=== PATIENT | male | born 1985 | race Caucasian/White ===

== ENCOUNTER 2016-10-05 16:40 | Inpatient (IN) | payer OTHER, SELFPAY ==
[~2016-10-05] VITALS: Ht 170.2 cm; Wt 137.9 kg
[2016-10-05] MEDS ORDERED: NALOXONE INJ 0.4 MG/1 ML VIAL (J2310) IV STA (16:50)
[2016-10-05] MEDS ORDERED: NALOXONE INJ 0.4 MG/1 ML VIAL (J2310) As Ordered ONE (16:50)
[2016-10-05] MEDS ORDERED: NALOXONE INJ 2 MG/2 ML SYRINGE (J2310) IV STA (16:53)
[2016-10-05] MEDS ORDERED: NALOXONE INJ 2 MG/2 ML SYRINGE (J2310) As Ordered ONE (16:54)
[2016-10-05 17:11] LABS: ABG BASE EXCESS -3.6 (-2.0-2.0); ABG HCO3 21.6 MEQ/L (22.0-26.0); ABG PARTIAL PRESSURE CO2 39.8 mmHg (35.0-45.0); ABG PARTIAL PRESSURE O2 79.1 mmHg (75.0-100.0); ABG STANDARD HCO3 21.5 MEQ/L (22.0-26.0); ABG TOTAL CO2 22.9 MEQ/L (22.0-29.0); ABG pH (ARTERIAL) 7.353 UNITS (7.350-7.450)
[2016-10-05] MEDS ORDERED: FUROSEMIDE 100 MG/10 ML VIAL (J1940) IV ONE (17:15)
[2016-10-05] MEDS ORDERED: PIPERACILLIN/TAZOBACTAM SOD 3.375 GM in D5W MINI-BAG PLUS 50 ML IV ONE (17:30)
[2016-10-05 17:34] LABS: MEAN CORPUSCULAR HEMOGLOBIN 28.9 pg (27.0-33.0); MEAN CORPUSCULAR HGB CONC 34.7 g/dl (32.0-36.5); MEAN CORPUSCULAR VOLUME 83.3 fl (80.0-96.0); RED CELL DISTRIBUTION WIDTH 13.1 % (11.5-14.5)
[2016-10-05 18:00] LABS: ALBUMIN 3.6 GM/DL (3.2-5.2); ALBUMIN/GLOBULIN RATIO 0.88 (1.00-1.93); ALKALINE PHOSPHATASE 72 U/L (45-117); ALT/SGPT 47 U/L (12-78); ANION GAP 11 MEQ/L (8-16); AST/SGOT 28 U/L (15-37); BILIRUBIN,DIRECT < 0.1 MG/DL (0.0-0.2); BILIRUBIN,TOTAL 0.3 MG/DL (0.2-1.0); BLOOD UREA NITROGEN 14 MG/DL (7-18); CALCIUM LEVEL 8.4 MG/DL (8.5-10.1); CARBON DIOXIDE LEVEL 23 MEQ/L (21-32); CHLORIDE LEVEL 104 MEQ/L (98-107); CREATININE FOR GFR 1.45 MG/DL (0.70-1.30); GLOMERULAR FILTRATION RATE 59.7 (>60); GLUCOSE, FASTING 234 MG/DL (70-105); SODIUM LEVEL 138 MEQ/L (136-145); TOTAL PROTEIN 7.7 GM/DL (6.4-8.2)
[2016-10-05] MEDS ORDERED: NITROGLYCERIN 0.3 MG SUBL TAB SL STA (18:00)
[2016-10-05] MEDS ORDERED: ALBUTEROL SULFATE 2.5 MG/0.5 ML INH NEB SOLN NEB ONE (18:00)
[2016-10-05 18:15] VITALS: BP 210/90
[2016-10-05] MEDS ORDERED: methylPREDNISolone INJ 40 MG/1 ML VIAL (J2920) IV ONE (19:15)
[2016-10-05 19:26] LABS: METHADONE URINE NEGATIVE (NEGATIVE)
[2016-10-05] MEDS ORDERED: ISOVUE-370 76% 100ML VIAL (Q9967) As Ordered ONE (20:10)
[2016-10-05] MEDS ORDERED: NS 500 ML IV ONE (20:15)
[2016-10-05] MEDS: CHLORHEXIDINE GLUCONATE 0.12 % 15ML UDC (PERIDEX ORAL RINSE) MT SCH (21:00)
[2016-10-05] MEDS ORDERED: ALBUTEROL SULFATE 2.5 MG/0.5 ML INH NEB SOLN NEB PRN (21:00)
--- NOTE | 2016-10-05 21:00 | REPUSA ---
CLINICAL HISTORY: Dyspnea. TECHNIQUE: Multiple incremental axial, coronal and oblique images are obtained from the thoracic inle t to the upper abdomen. Intravenous contrast material was administered as per pulmonary embolism prot ocol. This is a motion degraded study. COMMENTS: There is excellent opacification of pulmonary arterial system without evidence for pulmonary embolism . Aorta is of normal caliber without evidence for dissection or aneurysm. Note is made of patchy opacity scattered throughout both lung kenyon. There is dense consolidation n oted at both lung bases as well as lingula and left upper lobe. This is compatible with diffuse mult ifocal pneumonia-disseminated section. Clinical correlation is recommended. There is no evidence of pleural or parenchymal mass. There are no pleural effusions. There is no ev idence of hilar or mediastinal lymphadenopathy. The heart and great vessels are within normal limits . Images of the upper abdomen demonstrate no evidence of adrenal mass. The bony structures are free of lytic or blastic lesions. Bilateral gynecomastia is seen. There is hepatic hypoattenuation compatible with patchy infiltration. IMPRESSION: 1. No evidence for pulmonary embolism. 2. Patchy opacity scattered throughout both lung kenyon. There is dense consolidation noted at both lung bases as well as lingula and left upper lobe. This is compatible with diffuse multifocal pneumo rissa-disseminated section. Clinical correlation is recommended. 3. Fatty liver. 4. Bilateral gynecomastia is seen. Thank you for your kind referral of this patient. We appreciate the opportunity to participate in thi s patient's care.
[2016-10-05] MEDS ORDERED: VANCOMYCIN HCL 1,000 MG, VIAL MATE ADAPTER 1 EACH in D5W 250 ML IV ONE (21:30)
[2016-10-05 21:41] LABS: ABG BASE EXCESS -6.7 (-2.0-2.0); ABG HCO3 19.3 MEQ/L (22.0-26.0); ABG PARTIAL PRESSURE CO2 40.6 mmHg (35.0-45.0); ABG PARTIAL PRESSURE O2 206.4 mmHg (75.0-100.0); ABG STANDARD HCO3 19.2 MEQ/L (22.0-26.0); ABG TOTAL CO2 20.6 MEQ/L (22.0-29.0); ABG pH (ARTERIAL) 7.296 UNITS (7.350-7.450)
[2016-10-05] MEDS ORDERED: LORazepam 2 MG TAB PO PRN (21:45)
[2016-10-06] VITALS (9 sets, daily range): BP systolic 138–168; BP diastolic 66–85
[2016-10-06] MEDS: THIAMINE 100 MG TAB PO SCH ×3 (00:44→20:45)
[2016-10-06] MEDS: HEPARIN SOD (PORCINE) 5000 UNITS/ML VIAL SC SCH ×4 (00:45→21:52)
[2016-10-06] MEDS ORDERED: VANCOMYCIN HCL 1,000 MG, VIAL MATE ADAPTER 1 EACH in D5W 250 ML IV ONE (01:00)
--- NOTE | 2016-10-06 01:06 | PHACANCOPD ---
PHARMACY VANCOMYCIN DOSING Pt Demographics Demographics Patient Age:31 , Weight: , Gender: male Adjusted Body Weight Date: 10/06/16, Adjusted Body Weight: Kg Events Past 24 Hours Events Past 24 Hours: NO: Dialysis, Diuretic Therapy, Change in CrCl, Fever, Elevation in WBC, Pending Diagnostics, Pending Procedures, Other Vancomycin Vancomycin Target Ranges: 15-20 mcg/ml Vancomycin Load Y/N: Yes Load Dose Date Time Vancomycin Load Dose: 2000MG Date: 10-06 Time: 0100 Vancomycin Dose Date: 10/06/16. Current Vancomycin Dose: [1000MG Q8H] Intermittent Dosing?: No Labs Labs Item Value Date Time White Blood Count 18.0 K/mm3 H 10/05/16 1705 Creatinine 1.45 MG/DL H 10/05/16 1705 Vital Signs Label Value Date Time Patient Temperature 97.7 degrees F 10/06/16 0048 Micro Microbiology 10/05/16 Blood Culture, Received Pending 10/05/16 Blood Culture, Received Pending Creatinine Clearance Date:10/06/16. Creatinine Clearance: [67]. Pending Labs trough 06-12 @0000 Assessment and Plan Maintaining Current Dose?: Yes Reason for dose change: No Dose Change Pharmacist Note Pharmacist Note Date: 10/06/16. Pharmacist note:Dosed at 1000mg q8h with a trough ordered for 06- 12 @0000. Will continue to monitor and make adjustments as needed. [facility] Oct 06, 2016 01:06
[2016-10-06] MEDS: PIPERACILLIN/TAZOBACTAM SOD 3.375 GM in D5W MINI-BAG PLUS 50 ML IV SCH ×4 (01:53→20:45)
[2016-10-06 05:15] LABS: MEAN CORPUSCULAR HEMOGLOBIN 28.7 pg (27.0-33.0); MEAN CORPUSCULAR VOLUME 84.5 fl (80.0-96.0); RED CELL DISTRIBUTION WIDTH 13.3 % (11.5-14.5); WHITE BLOOD COUNT 20.6 K/mm3 (4.0-10.0)
[2016-10-06] MEDS: NS 1,000 ML IV SCH (05:15)
[2016-10-06 05:26] LABS: ALBUMIN 3.3 GM/DL (3.2-5.2); ALBUMIN/GLOBULIN RATIO 0.77 (1.00-1.93); ALKALINE PHOSPHATASE 51 U/L (45-117); ALT/SGPT 51 U/L (12-78); ANION GAP 11 MEQ/L (8-16); AST/SGOT 35 U/L (15-37); BILIRUBIN,TOTAL 0.7 MG/DL (0.2-1.0); BLOOD UREA NITROGEN 12 MG/DL (7-18); CALCIUM LEVEL 8.5 MG/DL (8.5-10.1); CARBON DIOXIDE LEVEL 23 MEQ/L (21-32); CHLORIDE LEVEL 105 MEQ/L (98-107); CREATININE FOR GFR 1.43 MG/DL (0.70-1.30); GLOMERULAR FILTRATION RATE > 60.0 (>60); GLUCOSE, FASTING 234 MG/DL (70-105); POTASSIUM SERUM 4.5 MEQ/L (3.5-5.1); SODIUM LEVEL 139 MEQ/L (136-145); TOTAL PROTEIN 7.6 GM/DL (6.4-8.2)
--- NOTE | 2016-10-06 05:47 | HPEPDOC ---
General Date of Admission Oct 05, 2016 at 21:00 Other Providers NO pcp Attending Physician: CHELSEA CORTEZ DO Chief Complaint The patient is a 31-year-old male admitted with a reason for visit of Drug Abuse , Shortness Of Breath. Source: Patient Exam Limitations: Other (BIPAP) Timing/Duration: 4-6 hours Severity: Severe Associated Symptoms: Unobtainable History of Present Illness 31-year-old man, history of drug abuse, presented to the emergency room with altered mental status. Patient's has history of cocaine abuse in the past, but according to his father. He has been taking for last 5 years. 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 He came to visit his father in [place]. Father and son. Diving 2. Cannot do from [place]. There are diving for a 5 hours and father suddenly found that there is some in the back seat and was getting very short of breath and eventually soon became unresponsive. Now father. The rest of the car on the side and they started doing chest compress and while his friend called 911. He continued just compress in for a couple of minutes not certain about the pulse status. After few minutes visit. This started eating responsive, had vomiting and apparently had some aspiration. When EMS arrived. This indigestion, unresponsive. Patient was given Narcan and brought to the ER. After giving another dose of Narcan per Center. This started getting more responsive. He was put on nonrebreather and was saturating well on nonrebreather. Later was replaced with the BiPAP. According to the father just before the journey patient confessed to use heroine and fentanyl Home Medications No Active Prescriptions or Reported Meds Allergies Coded Allergies: No Known Allergies (Unverified , 10/05/16) Past Medical History Medical History Drug abuse Surgical History Wrist repair Family History Significant Family History: Diverticulitis, Heart disease, Hypertension Social History * Smoker: Denies Alcohol: Denies Drugs: heroin Recent Travel/Sick Contacts: Reports: Recent travel, Denies: Recent sick contacts Psychosocial History: No pertinent psych hx Review of Symptoms Other systems Unable to open due to BiPAP Physical Examination General Exam: Positive: Alert, Severe Distress Eye Exam: Positive: PERRLA, Conjunctiva & lids normal, Negative: Sclera icteric ENT Exam: Positive: Atraumatic, Mucous membr. moist/pink Neck Exam: Positive: Supple, Negative: JVD, thyromegaly Chest Exam: Positive: Rhonchi, Other (crackles) Heart Exam: Positive: Tachycardic, Regular Rhythm, Normal S1, Normal S2, Negative: Murmurs, Rubs Telemetry: Positive: No significant arrhythmia Abdomen Exam: Positive: Normal bowel sounds, Soft, Negative: Tenderness, Hepatospenomegaly Extremity Exam: Positive: Normal pulses, Negative: Clubbing, Cyanosis, Edema Skin Exam: Positive: Nl turgor and temperature, Negative: Breakdown, Lesion Neuro Exam: Positive: Cranial Nerves 3-12 NL, Reflexes 2+ Psych Exam: Positive: Mood NL Vital Signs Vital Signs Date Time Temp Pulse Resp B/P (MAP) Pulse Ox O2 Delivery O2 Flow Rate FiO2 10/06/16 00:55 Venturi Mask 15.0 50 10/06/16 00:48 97.7 10/06/16 00:44 100 24 95 Laboratory Data Labs 24H Laboratory Tests 2 10/05/16 17:05: Blood Gas Bicarbonate Standard 21.5L, Arterial Blood pH 7.353, Arterial Blood Partial Pressure CO2 39.8, Arterial Blood Partial Pressure O2 79.1, Arterial Blood Total CO2 22.9, Arterial Blood HCO3 21.6L, Arterial Blood Base Excess - 3.6L, Arterial Blood Oxygen Saturation 95.8, Anion Gap 11, Glomerular Filtration Rate 59.7L, Osmolality 302H, Calcium Level 8.4L, Aspartate Amino Transf (AST/SGOT) 28, Alanine Aminotransferase (ALT/SGPT) 47, Alkaline Phosphatase 72, Total Bilirubin 0.3, Direct Bilirubin < 0.1, Total Creatine Kinase 289, Creatine Kinase MB 1.5, Creatine Kinase MB Relative Index 0.51, Troponin I 0.02, B-Type Natriuretic Peptide < 5.0, Total Protein 7.7, Albumin 3.6, Albumin/Globulin Ratio 0.88L, Thyroid Stimulating Hormone (TSH) 1.920, Salicylates Level < 1.7L, Acetaminophen Level < 2.0L, Ethyl Alcohol Level < 0.003 10/05/16 18:43: Urine Amphetamines Screen NEGATIVE, Urine Benzodiazepines Screen NEGATIVE, Urine Opiates Screen NEGATIVE, Urine Methadone Screen NEGATIVE, Urine Barbiturates Screen NEGATIVE, Urine Phencyclidine Screen NEGATIVE, Urine Cocaine Metabolite Screen POSITIVEH, Urine Cannabinoids Screen NEGATIVE 10/05/16 21:24: Blood Gas Bicarbonate Standard 19.2L, Arterial Blood pH 7.296L, Arterial Blood Partial Pressure CO2 40.6, Arterial Blood Partial Pressure O2 206.4H, Arterial Blood Total CO2 20.6L, Arterial Blood HCO3 19.3L, Arterial Blood Base Excess - 6.7L, Arterial Blood Oxygen Saturation 99.4H 10/06/16 04:32: CBC/BMP Laboratory Tests 10/05/16 17:05 Red Blood Count 5.20, Mean Corpuscular Volume 83.3, Mean Corpuscular Hemoglobin 28.9, Mean Corpuscular Hemoglobin Concent 34.7, Red Cell Distribution Width 13.1 Microbiology Microbiology 10/05/16 Blood Culture, Received Pending 10/05/16 Blood Culture, Received Pending Assessment/Plan Tendency. All medical history of drug abuse, presented to the emergency room for altered mental status and was found to have cocaine in the urine tox Problems (1) Aspiration pneumonia Problem Text: Started on Zosyn and vancomycin IV (2) Drug abuse Status: Acute Problem Text: U tox positive for cocaine-related headaches and consult as an outpatient. Continue with CIWA protocol . PCU monitoring (3) Shortness of breath Status: Acute Problem Text: Acute respiratory failure due to over the lower dose. Continue with the BiPAP and titrated down Plan / VTE VTE Prophylaxis Ordered?: Yes Plan IVF: Initiate Diet: Continue Current Activity: Continue Current Diagnostics: Repeat Labs in AM Anticipated Discharge: Home MIMI ARROYO MD Oct 06, 2016 05:47
[2016-10-06 05:56] LABS: ABG BASE EXCESS -6.9 (-2.0-2.0); ABG HCO3 19.9 MEQ/L (22.0-26.0); ABG PARTIAL PRESSURE CO2 44.5 mmHg (35.0-45.0); ABG PARTIAL PRESSURE O2 88.3 mmHg (75.0-100.0); ABG STANDARD HCO3 18.9 MEQ/L (22.0-26.0); ABG TOTAL CO2 21.2 MEQ/L (22.0-29.0); ABG pH (ARTERIAL) 7.268 UNITS (7.350-7.450)
--- NOTE | 2016-10-06 08:18 | REP ---
Portable chest, 10/05/2016, 05:08 p.m.: Comparison is a chest CT at 06:10 p.m. and 08:27 p.m. Faintly visible infiltrate is identified inferiorly in the left lung. The right lung is clear. By CT there are multifocal infiltrates bilaterally, somewhat worse on the left than right, better visualized by CT the portable plain film study. Signed by Connor Garner MD 10/06/2016 08:10 A
[2016-10-06] MEDS: MULTIVITAMINS/MINERALS THERAP 1 TAB PO SCH (08:32)
[2016-10-06] MEDS: FOLIC ACID 1 MG TAB PO SCH (08:32)
--- NOTE | 2016-10-06 08:44 | REP ---
Portable chest, 10/06/2016, at 08:16 a.m., single AP view, patient sitting: Comparisons are the portable chest of 10/05/[address] of 10/05/2016. The faintly visible infiltrate inferiorly in the left lung. The faintly visible infiltrate is now visible inferiorly in the right lung as a change from the comparison portable study. However, on the comparison CT there are multifocal infiltrates bilaterally, somewhat worse on the left than the right, better visualized by CT than on these portable plain film studies. Cardiac size is borderline enlarged, unchanged. Sharda, mediastinum, bony thorax are unremarkable. Impression: Bilateral infiltrates as described. Signed by Connor Garner MD 10/06/2016 08:35 A
[2016-10-06] MEDS: CHLORHEXIDINE GLUCONATE 0.12 % 15ML UDC (PERIDEX ORAL RINSE) MT SCH ×2 (09:49→21:00)
[2016-10-06] MEDS: VANCOMYCIN HCL 1,000 MG, VIAL MATE ADAPTER 1 EACH in D5W 250 ML IV SCH ×2 (09:50→17:23)
--- NOTE | 2016-10-06 12:06 | IPN ---
DATE: 10/06/2016 SUBJECTIVE: Patient is seen and examined in the room today. Per patient, the patient was admitted for illicit drug use. The patient had a long history previously but the patient quit 5 years ago. Last week he came back to his house in [place], he started to feel depressed due to the of his mother. Therefore, he started to use illicit drugs. He used heroin mixed with fentanyl and according to the patient he just started last week. When asking for his reason for restarting medication, he stated his mother for some time but he was busy working, he did not process through the information and when he went back to his old house, all the family members, and the whole environment triggered his process of grief and he had to rely on the medication to process through the situation. Per the medical record, the patient had CPR on scene before being sent to [facility]. Multiple doses of Narcan were given and the patient initially was on BiPAP and was able to wean off, went to the high flow nasal cannula. OBJECTIVE: VITAL SIGNS: Temperature 97,1, pulse is 106, respirations 24, blood pressure 168/85, pulse oximetry 96% with 15% high flow cannula. GENERAL: Morbidly obese. No signs of acute distress. Alert and oriented times three. HEENT: Normocephalic, atraumatic. Extraocular motors grossly intact. CARDIOVASCULAR: Positive S1 and S2, regular rate. LUNGS: Positive crackles bilaterally. No wheezes appreciated. ABDOMEN: Morbidly obese, soft, nontender, nondistended. Bowel sounds present. No rebound, no guarding. EXTREMITIES: No edema. No signs of cyanosis. LABORATORY DATA: WBC 20.6, hemoglobin 15.1, hematocrit 44.5, platelet count is 334. Sodium is 139, potassium 4.5, chloride is 105, carbon dioxide is 23, BUN 12, creatinine 1.43. GFR is greater than 60. Fasting glucose is 234. Calcium is 8.5, total bilirubin 0.7, AST 35, ALT 52, alkaline phosphatase 51, total protein is 7.6, albumin is 3.3. Blood cultures are pending times two sets. ASSESSMENT/PLAN: 1. Heroin with fentanyl overdose. Patient is on CIWA protocol. Patient is monitored on telemetry. 2. Multifocal pneumonia, most likely secondary to aspiration pneumonia. Patient was demonstrated to have vomiting during the loss of consciousness events. Empirically, patient is on vancomycin and Zosyn. Patient was weaned off BiPAP previously. Patient is on high flow cannula. Will try to wean the patient off the oxygen as tolerated. 3. Depression. Patient is going through traumatic event of the of his mother. Will continue to observe. 4. Deep vein thrombosis (DVT) prophylaxis. Patient is on heparin.
--- NOTE | 2016-10-06 19:25 | ECGEPIP ---
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
[2016-10-07] MEDS: VANCOMYCIN HCL 1,000 MG, VIAL MATE ADAPTER 1 EACH in D5W 250 ML IV SCH (00:09)
--- NOTE | 2016-10-07 00:50 | PHACANCOPD ---
PHARMACY VANCOMYCIN DOSING Pt Demographics Demographics Patient Age:31 , Weight:132.400 , Gender: male Adjusted Body Weight Date: 10/06/16, Adjusted Body Weight: Kg Events Past 24 Hours Events Past 24 Hours: NO: Dialysis, Diuretic Therapy, Change in CrCl, Fever, Elevation in WBC, Pending Diagnostics, Pending Procedures, Other Vancomycin Vancomycin Target Ranges: 15-20 mcg/ml Vancomycin Load Y/N: Yes Load Dose Date Time Vancomycin Load Dose: 2000MG Date: 10-06 Time: 0100 Vancomycin Dose Date: 10/07/16. Current Vancomycin Dose: [1000MG Q6H] Intermittent Dosing?: No Labs Labs Item Value Date Time Vancomycin Level Trough 9.3 UG/ML L 10/06/162356 Creatinine 1.43 MG/DL H 10/06/16431 White Blood Count 20.6 K/mm3 H 10/06/16431 Vital Signs Label Value Date Time Patient Temperature 98.4 degrees F 10/06/16 235 Temperature Source Temporal 10/06/16 235 Micro Microbiology 10/05/16 Blood Culture - Preliminary, Resulted No growth after 24 hours . All specim... 10/05/16 Blood Culture - Preliminary, Resulted No growth after 24 hours . All specim... Creatinine Clearance Date:10/06/16. Creatinine Clearance: [67]. Pending Labs trough 06-12 @1700 Assessment and Plan Maintaining Current Dose?: No Reason for dose change: Trough too low Pharmacist Note Pharmacist Note Date: 10/06/16. Pharmacist note:Trough of 9.3 is below target range. Dose increased to 1000mg q6h with a trough ordered for 06-12 @1700. Will continue to monitor and make adjustments as needed. [facility] Oct 07, 2016 00:50
[2016-10-07] MEDS: NS 1,000 ML IV SCH (02:34)
[2016-10-07] MEDS: PIPERACILLIN/TAZOBACTAM SOD 3.375 GM in D5W MINI-BAG PLUS 50 ML IV SCH ×2 (02:34→09:48)
[2016-10-07 03:49] VITALS: BP 138/78
[2016-10-07 05:34] LABS: MEAN CORPUSCULAR HEMOGLOBIN 28.4 pg (27.0-33.0); MEAN CORPUSCULAR VOLUME 86.1 fl (80.0-96.0); RED CELL DISTRIBUTION WIDTH 13.1 % (11.5-14.5); WHITE BLOOD COUNT 18.5 K/mm3 (4.0-10.0)
[2016-10-07] MEDS: HEPARIN SOD (PORCINE) 5000 UNITS/ML VIAL SC SCH (05:54)
[2016-10-07] MEDS ORDERED: VANCOMYCIN HCL 1,000 MG, VIAL MATE ADAPTER 1 EACH in D5W 250 ML IV SCH (06:00)
[2016-10-07 06:05] LABS: ALBUMIN 2.8 GM/DL (3.2-5.2); ALBUMIN/GLOBULIN RATIO 0.64 (1.00-1.93); ALKALINE PHOSPHATASE 56 U/L (45-117); ALT/SGPT 37 U/L (12-78); ANION GAP 6 MEQ/L (8-16); AST/SGOT 20 U/L (15-37); BILIRUBIN,TOTAL 0.6 MG/DL (0.2-1.0); BLOOD UREA NITROGEN 11 MG/DL (7-18); CALCIUM LEVEL 8.7 MG/DL (8.5-10.1); CARBON DIOXIDE LEVEL 28 MEQ/L (21-32); CHLORIDE LEVEL 104 MEQ/L (98-107); CREATININE FOR GFR 0.92 MG/DL (0.70-1.30); GLOMERULAR FILTRATION RATE > 60.0 (>60); GLUCOSE, FASTING 94 MG/DL (70-105); POTASSIUM SERUM 3.9 MEQ/L (3.5-5.1); SODIUM LEVEL 138 MEQ/L (136-145); TOTAL PROTEIN 7.2 GM/DL (6.4-8.2)
[2016-10-07 07:35] VITALS: BP 166/92
--- NOTE | 2016-10-07 07:45 | REP ---
Clinical: Our acute respiratory failure. Comparison: 10/06/2016. Findings: Mediastinum and cardiac silhouette are within normal limits. Subtle bilateral infiltrates (left greater than right) remain relatively stable. No obvious effusion. No pneumothorax. Skeletal structures intact. Impression: Subtle bilateral infiltrates (left greater than right) similar to prior examination. Signed by Luigi Sr MD 10/07/2016 07:37 A
[2016-10-07] MEDS ORDERED: AUGM875T27 PO (09:22)
[2016-10-07] MEDS ORDERED: BACITAB3 PO (09:22)
[2016-10-07] MEDS: THIAMINE 100 MG TAB PO SCH (09:48)
[2016-10-07] MEDS: FOLIC ACID 1 MG TAB PO SCH (09:48)
[2016-10-07] MEDS: MULTIVITAMINS/MINERALS THERAP 1 TAB PO SCH (09:48)
--- NOTE | 2016-10-07 12:40 | DSES ---
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 ADMISSION/DISCHARGE DIAGNOSES: 1. Drug abuse. 2. Acute respiratory failure. 3. Aspiration pneumonia. HOSPITALIZATION COURSE: The patient is a 31-year-old male who presented to [facility] on 10/05/2016 for altered mental status with respiratory failure. The patient has a history of drug abuse and he started using heroin mixing with fentanyl since a week ago. The patient was on his way traveling from [place] to [place]. The patient was found unconscious with no breathing in the backseat. The patient's father performed cardiopulmonary resuscitation on scene for approximately one to two minutes and the patient was noted to have gastric contents coming from the mouth and the patient was brought to [facility] for further evaluation and treatment. Initially, due to respiratory failure, the patient was placed on BiPAP. The patient was started on empiric antibiotic for aspiration pneumonia. Multiple doses of Narcan were given to the patient and the patient started having improved orientation. No rib fracture was found. Later, the patient is able to titrate down the oxygen requirement slowly. The patient initially was switched to non-rebreather and then 4 liters nasal cannula. On 10/07/2016, the patient is able to maintain satisfactory oxygen saturation. High paced ambulation was tested and the patient demonstrates good respirations with good oxygen saturation, then the patient was determined to be medically stable for discharge with recommendations to continue antibiotic for his aspiration pneumonia. OBJECTIVE: VITAL SIGNS: Temperature 97.2, pulse is 91, respirations 18, blood pressure 166/92, pulse oximetry is 96% on room air. LABORATORY DATA: WBC 18.5, hemoglobin is 13.5, hematocrit 40.9, platelet count is 317. Sodium 138, potassium 3.9, chloride 104, carbon dioxide 28, BUN is 11, creatinine 0.92, GFR is greater than 60, fasting glucose is 94, calcium is 8.7, total bilirubin is 0.6, AST 20, ALT 37, alkaline phosphatase 56, total protein is 7.2, albumin 2.8. Blood cultures negative after 24 hours times two sets. IMAGING STUDIES: CT angiogram of the chest showed no evidence of pulmonary embolism. Patchy opacity scattered throughout both lung kenyon. There is a dense consolidation noted on bilateral lung bases, as well as lingula and the left upper lobe. Fatty liver. DISCHARGE MEDICATIONS: - Augmentin 875 mg by mouth twice a day for 6 more days - Bacid one tablet by mouth with meals for 6 days DISCHARGE INSTRUCTIONS: Discontinue line. Discharge from the hospital. Activity as tolerated. Diet as tolerated. The patient should finish the full course for aspiration pneumonia. The patient is recommended to followup with a healthcare professional in 1 to 2 weeks. DISCHARGE CONDITION: Stable. Discharge time was greater than 30 minutes. MTDD
== END 2016-10-07 11:55 | disposition home or self-care (01) | DRG 812 ==
LOC: EDBD 16:40 → M ED 20:55 → M ED INP 21:00 → M PCU 10-06 00:51
PROVIDERS: ADMIT Internal Medicine; ATTEND Internal Medicine
DX: T40.2X1A Poisoning by other opioids, accidental (unintentional), initial encounter (principal); J96.00 Acute respiratory failure, unspecified whether with hypoxia or hypercapnia; J69.0 Pneumonitis due to inhalation of food and vomit; F11.10 Opioid abuse, uncomplicated; F32.9 Major depressive disorder, single episode, unspecified